=== PATIENT | female | born 1990 | race Two or more races ===

== ENCOUNTER 2019-05-03 19:01 | Emergency (ER) | payer MEDICAID, OTHER ==
[~2019-05-03] VITALS: Ht 157.5 cm; Wt 72.6 kg
[2019-05-03 19:29] VITALS: BP 140/86
[2019-05-03 19:59] LABS: Basophils # (auto) 0 uL; Basophils % (auto) 0.4 % (0.0-2.0); Eosinophils # (auto) 0.1 uL; Eosinophils % (auto) 0.8 % (0.0-7.0); Hematocrit 39.7 % (36.0-46.0); Lymphocytes % (auto) 10.8 % (10.0-50.0); Mean Corpuscular Hemoglobin 32.9 pg (28.0-32.0); Mean Corpuscular Hgb Conc. 35.2 g/dL (32.0-36.0); Mean Corpuscular Volume 93.4 fL (80.0-100.0); Monocytes # (auto) 0.4 uL; Monocytes % (auto) 3.9 % (0.0-12.0); Neutrophils # (auto) 7.7 uL; Neutrophils % (auto) 84.1 % (37.0-80.0); Platelet Count (auto) 208 10^3/uL (140-450); Red Blood Cells 4.25 10^6/uL (4.0-5.20); Red Cell Distribution Width 12.4 % (11.8-14.3); White Blood Cell 9.2 10^3/uL (4.4-10.8)
[2019-05-03 20:24] LABS: Albumin 3.8 g/dL (3.4-5.0); BUN/Creatinine Ratio 14.1; Calcium 8.9 mg/dL (8.5-10.1); Potassium 3.8 mmol/L (3.5-5.1)
[2019-05-03 20:27] LABS: Urine Bacteria FEW /hpf (None Seen); Urine Blood Negative /uL (Negative); Urine Specific Gravity 1.003 (1.001-1.035); Urine WBC 4 /hpf (0 - 5)
[2019-05-03 20:27] LABS: Bilirubin, Total 0.7 mg/dL (0.2-1.0); Total Protein 7.7 g/dL (6.4-8.2)
== END 2019-05-03 21:45 | disposition home or self-care (01) ==
LOC: ER 19:01
DX: N39.0 Urinary tract infection, site not specified (principal); R42 Dizziness and giddiness; Z32.02 Encounter for pregnancy test, result negative
CPT/HCPCS: 36415; 76705; 80053; 81001; 81025; 82150; 83690; 85025